=== PATIENT | female | born 1980 | race African-American/Black ===

== ENCOUNTER 2016-08-17 15:57 | Emergency (ER) | payer MEDICAID ==
[~2016-08-17] VITALS: Ht 162.6 cm; Wt 98.4 kg
[2016-08-17 17:03] VITALS: BP 154/88
== END 2016-08-17 17:34 | disposition home or self-care (01) ==
LOC: ER 15:57

== ENCOUNTER 2016-09-18 22:36 | Emergency (ER) | payer MEDICAID ==
[~2016-09-18] VITALS: Ht 162.6 cm; Wt 95.3 kg
[2016-09-18 23:05] VITALS: BP 120/72
[2016-09-19 01:19] LABS: Urine Bilirubin Negative (Negative); Urine Blood Negative /uL (Negative); Urine Color Yellow (Yellow); Urine Glucose Normal (Normal); Urine Ketone Negative (Negative); Urine Mucus FEW (None Seen); Urine Nitrite Negative (Negative); Urine RBC 1 /hpf (0 - 4); Urine Squamous Epithelial Cell FEW /hpf (<5); Urine Urobilinogen Normal (Negative); Urine pH 6.5 (5.0-8.0)
== END 2016-09-19 02:12 | disposition left against medical advice (07) ==
LOC: ER 22:42
DX: R05 Cough (principal); Z53.21 Procedure and treatment not carried out due to patient leaving prior to being seen by health care provider
CPT/HCPCS: 81001; 81025